=== PATIENT | female | born 1960 | race Caucasian/White ===

== ENCOUNTER 2022-05-13 06:44 | Day surgery (SDC) | payer OTHER ==
[2022-05-10 13:16] LABS: COVID AG,FIA SOURCE NASOPHARYNGEAL
[~2022-05-13] VITALS: Ht 162.6 cm; Wt 61.3 kg
[~2022-05-13 06:44] MED LIST: LEVO75 PO
[2022-05-13] MEDS ORDERED: LIDOCAINE 4% 50 ML SOLUTION TP ONE (06:45)
[2022-05-13] MEDS ORDERED: LIDOCAINE 2% 11 ML JELLY TP ONE (06:45)
[2022-05-13] MEDS ORDERED: ALBUTEROL SULFATE 2.5 MG/0.5 ML NEB SOLUTION NEB ONE (06:45)
[2022-05-13] MEDS ORDERED: BENZOCAINE 20% 50 MCG/SPRAY 57 GM TP ONE (06:45)
[2022-05-13] MEDS ORDERED: SODIUM CHLORIDE 0.9% 1,000 ML ONE (06:46)
[2022-05-13] MEDS ORDERED: SODIUM CHLORIDE 0.9% 1,000 ML IV ONE (07:00)
[2022-05-13] MEDS ORDERED: SODIUM CHLORIDE 0.9% 10 ML ONE (08:03)
[2022-05-13] MEDS ORDERED: FentaNYL CITRATE PF 100 MCG/2 ML VIAL ONE (08:16)
[2022-05-13] MEDS ORDERED: MIDAZOLAM HCL 5 MG/ML VIAL ONE (08:17)
[2022-05-13] MEDS ORDERED: MethylPREDNISolone SOD SUCC 125 MG/2 ML VIAL IVP ONE (10:00)
[2022-05-13] MEDS ORDERED: MethylPREDNISolone SOD SUCC 125 MG/2 ML VIAL ONE (10:20)
[2022-05-13] MEDS ORDERED: OXYGEN THERAPY IH SCH (20:00)
== END 2022-05-13 11:55 | disposition home or self-care (01) ==
LOC: SURGERY 06:44
PROVIDERS: ATTEND Internal Medicine Critical Care Medicine
DX: J38.4 Edema of larynx (principal); B37.0 Candidal stomatitis; J45.909 Unspecified asthma, uncomplicated; Z79.899 Other long term (current) drug therapy
CPT/HCPCS: 31623; 31624; 71045; 87015; 87070; 87101; 87206; 87220; 87426; 88184; 88185; C9803; J2250; J2930; J3010; J7030; Q9967; 88108; 88305; J7613; Z7610